=== PATIENT | female | born 1980 | race Caucasian/White ===

== ENCOUNTER 2018-03-04 11:42 | Emergency (ER) | payer MEDICAID ==
[2018-03-04] MEDS: IBUPROFEN 800 MG TAB PO (12:50)
== END 2018-03-04 13:45 | disposition home or self-care (01) ==
LOC: FTE 11:42
DX: M54.2 Cervicalgia (principal)
CPT/HCPCS: 72040; 99283-25

== ENCOUNTER 2018-07-01 10:39 | Emergency (ER) | payer MEDICAID ==
[2018-07-01] MEDS: METOCLOPRAMIDE 10 MG TAB PO (12:03)
[2018-07-01] MEDS: IBUPROFEN 600 MG TAB PO (12:03)
[2018-07-01] MEDS: ACETAMINOPHEN 500 MG TAB PO (12:03)
== END 2018-07-01 13:07 | disposition home or self-care (01) ==
LOC: FTE 10:39
DX: G43.909 Migraine, unspecified, not intractable, without status migrainosus (principal)
CPT/HCPCS: 99283; Z7502

== ENCOUNTER 2018-10-13 11:05 | Emergency (ER) | payer MEDICAID | END 2018-10-13 12:11 | disposition home or self-care (01) | LOC: FTE 11:05 | DX: H60.92 Unspecified otitis externa, left ear (principal); R40.2412 Glasgow coma scale score 13-15, at arrival to emergency department | CPT/HCPCS: 99282; Z7502 ==